=== PATIENT | female | born 1955 | race Caucasian/White ===

== ENCOUNTER 2025-03-05 14:59 | Emergency (ER) | payer MEDICARE ==
[~2025-03-05] VITALS: Ht 167.6 cm; Wt 68.2 kg
[2025-03-05 15:04] VITALS: TEMP 98.3
[2025-03-05 15:34] LABS: APPEARANCE,URINE HAZY (CLEAR); BILIRUBIN,URINE NEGATIVE (NEGATIVE); COLOR,URINE LIGHT YELLOW (YELLOW); GLUCOSE, URINE (UA) 300-500 mg/dL (NEGATIVE); KETONES,URINE NEGATIVE (NEGATIVE); LEUKOCYTE ESTERASE ,URINE LARGE (NEGATIVE); NITRATE,URINE NEGATIVE (NEGATIVE); OCCULT BLOOD,URINE TRACE (NEGATIVE); PH,URINE 5.5 (5.0-8.0); PROTEIN,URINE TRACE mg/dL (NEGATIVE); SPECIFIC GRAVITIY, URINE 1.013 (1.003-1.030); UROBILINOGEN,URINE <=1.0 mg/dL (<=1.0)
[2025-03-05 15:59] LABS: RBC,URINE 0-2 /HPF (0-2)
[2025-03-05 16:00] LABS: BACTERIA,URINE Few /HPF (None Seen); WBC,URINE 51-100 /HPF (0-5)
[2025-03-05] MEDS: SODIUM CHLORIDE 0.9% 1,000 ML IV ONE (17:17)
[2025-03-05] MEDS: CefTRIAXone 1 GM/DEXTROSE 50 ML IV ONE (17:17)
[2025-03-05 17:25] LABS: BASOPHILS % (AUTO) 0.5 % (0.0-2.0); EOSINOPHILS % (AUTO) 1.6 % (1.0-6.0); HEMATOCRIT 40.3 % (36-46); HEMOGLOBIN 13.1 g/dL (12.0-16.0); LYMPHOCYTES # (AUTO) 1.6 K/uL (1.0-4.8); LYMPHOCYTES % (AUTO) 30.8 % (22.0-44.0); MEAN CORPUSCULAR HGB CONC 32.5 G/dL (31.0-37.0); MEAN CORPUSCULAR VOLUME 92 fL (80-100); MONOCYTES # (AUTO) 0.4 K/uL (0.1-1.0); MONOCYTES % (AUTO) 8.1 % (2.0-9.0); NEUTROPHILS # (AUTO) 3.1 K/uL (1.8-7.7); PLATELET COUNT (AUTO) 282 K/uL (150-450); RED BLOOD CELL COUNT(AUTO) 4.36 MIL/uL (4.00-5.20); RED CELL DISTRIBUTION WIDTH 13.6 % (11.5-14.5); WHITE BLOOD COUNT (AUTO) 5.3 K/uL (4.5-11.0)
[2025-03-05 17:39] LABS: ANION GAP 5 mmol/L (8-16); CARBON DIOXIDE 28 mmol/L (22-29); CHLORIDE 103 mmol/L (98-107); CREATININE 0.82 mg/dL (0.60-1.30); GLOMERULAR FILTR. RATE CALC > 60 mL/min (>60); GLUCOSE,RANDOM 91 mg/dL (70-110); POTASSIUM 3.8 mmol/L (3.5-5.1); SODIUM SERUM 136 mmol/L (136-145); UREA NITROGEN, BLOOD 15 mg/dL (7-18)
[2025-03-05] MEDS: MORPHINE SULFATE 2 MG/ML SYRINGE IVP ONE (18:28)
[2025-03-05 19:10] VITALS: BP 120/59; PULSE 65; RESP 15; O2SAT 98
[2025-03-05] MEDS ORDERED: POLY17PO62 PO (20:15)
[2025-03-05] MEDS ORDERED: CEPH-558 PO (20:15)
== END 2025-03-05 20:16 | disposition home or self-care (01) ==
LOC: EMS 15:04
DX: N39.0 Urinary tract infection, site not specified (principal); K59.00 Constipation, unspecified; R10.32 Left lower quadrant pain
CPT/HCPCS: 99285; 74176; 96365; 96375; 80048; 81001; 83690; 85025; 87040; 87086; 36415; J0696; J2270; J7030